=== PATIENT | female | born 1945 | race Caucasian/White ===

== ENCOUNTER 2022-04-20 10:47 | Outpatient (CLI) | payer MEDICARE, SELFPAY ==
[2022-04-20 18:46] LABS: Alanine Aminotransferase 22 U/L (6-35); Albumin Level 4.8 g/dL (3.5-5.1); Alkaline Phosphatase 65 U/L (38-126); Anion Gap 13 mmol/L (8-16); Aspartate Amino Transferase 39 U/L (14-36); Bilirubin,Total 0.7 mg/dL (0.2-1.3); Blood Urea Nitrogen 8 mg/dL (7-17); Calcium 9.9 mg/dL (8.4-10.2); Carbon Dioxide 26 mmol/L (22-30); Chloride 95 mmol/L (98-107); Cholesterol 177 mg/dL (0-200); Estimated Glomerular Filt Rate > 60; Glucose 102 mg/dL (65-110); HDL Direct 61 mg/dL; Sodium 134 mmol/L (137-145); Triglycerides 67 mg/dL (<150)
[2022-04-20 19:04] LABS: LDL Cholesterol Direct 80 mg/dL
== END 2022-04-20 10:48 | disposition home or self-care (01) ==
PROVIDERS: PCP Family Medicine; Visit Provider Family Medicine
DX: E78.5 Hyperlipidemia, unspecified (principal); Z13.29 Encounter for screening for other suspected endocrine disorder; I10 Essential (primary) hypertension
CPT/HCPCS: 36415; 80053; 80061; 84443

== ENCOUNTER 2022-10-22 14:12 | Outpatient (CLI) | payer MEDICARE, SELFPAY ==
--- NOTE | ~2022-10-22 | MM_ITS ---
EXAMINATION: MM screening chepe BI w robin HISTORY: Screening mammogram TECHNIQUE: Craniocaudal and mediolateral oblique 3-D tomosynthesis images were obtained and synthetic 2-D images were generated. CAD analysis was submitted and interpreted. COMPARISON: No prior mammogram is available for comparison at this institution. BREAST PARENCHYMAL COMPOSITION: There are scattered areas of fibroglandular density. FINDINGS: RIGHT BREAST: No suspicious mass, calcification, or architectural distortion are identified in the br east to suggest malignancy. There is questionable enlargement of a right axillary lymph node. LEFT BREAST: There are grouped calcifications in the middle third of the central breast. An asymmetry is present in the middle third of the breast just above the nipple axis 5 cm from the nipple on the mediolateral oblique view. IMPRESSION: 1. Grouped calcifications of the left breast and possible enlargement of the right axillary lymph nod e. 2. Magnification and spot compression views are recommended on the left and right axillary ultrasound is recommended. BI-RADS Category 0: Incomplete: Needs additional imaging evaluation. Reviewed, dictated and finalized at location A. IMPRESSION: 1. Grouped calcifications of the left breast and possible enlargement of the ri ght axillary lymph node. 2. Magnification and spot compression views are recommended on the left and rig ht axillary ultrasound is recommended. BI-RADS Category 0: Incomplete: Needs additional imaging evaluation.
--- NOTE | ~2022-10-22 | DEXA_ITS ---
Bone Density Report Name: MANAV ANGLIN Age: 77 Sex: Female Ethnicity: White Date of : 1945 Indication: postmenopausal; screening for osteoporosis; height loss; Referring Provider: JOSSELYN WALL Study: Bone densitometry was performed. Exam Date: October 22, 2022 Accession number: [id number] Bone Density: Region BMD T-score Z-score Classification AP Spine(L1-L4) 0.898 -1.4 1.1 Osteopenia Femoral Neck (Left) 0.675 -1.6 0.5 Osteopenia Total Hip (Left) 0.844 -0.8 1.0 Normal Femoral Neck (Right) 0.666 -1.6 0.5 Osteopenia Total Hip (Right) 0.812 -1.1 0.7 Osteopenia Total Hip Mean 0.828 -1.0 0.9 Normal World Health Organization criteria for BMD impression classify patients as: Normal (T-score at or above -1.0), Osteopenia (T-score between -1.0 and -2.5), or Osteoporosis (T-score at or below -2.5). 10-year Fracture Risk(1): Major Osteoporotic Fracture 12% Hip Fracture 2.4% Reported Risk Factors: [place] (), Neck BMD=0.666, BMI=30.1 (1) FRAX(R) Version 3.08. Fracture probability calculated for an untreated patient. Fracture probability may be lower if the patient has received treatment. Clinical Information Provided by Patient: Has used the following medications: Vitamin D, Calcium Patient maximum height was 65 Menopause Age: 52 Drinks caffeinated beverages Onset of menses at age 15 Number of children 0 Impression: The patient has low bone mass, based on the Left Femoral Neck T-score. The patient has an estimated ten-year risk of hip fracture of 2.4% and an estimated ten-year risk of major fracture of 12%, based on the WHO FRAX algorithm. Discussion: BONE DENSITY IS LOW AT ONE OR MORE SKELETAL SITES. This patient's lowest T-score is low at one or more skeletal sites. It meets the World Health Organization's (WHO) criteria for ?low bone mass? (T-score between -1.0 and -2.5). The patient's 10-year risk of fracture as calculated by FRAX is less than the threshold where pharmacological therapy is recommended by the National Osteoporosis Foundation (NOF). However, all treatment decisions require clinical judgment and consideration of individual patient factors, including patient preferences, comorbidities, previous drug use, risk factors not captured in the FRAX model (e.g., frailty, falls, vitamin D deficiency, increased bone turnover, interval significant decline in bone density) and possible under or overestimation of fracture risk by FRAX. The patient should follow a healthful lifestyle (good nutrition with adequate calcium and vitamin D, and appropriate weight-bearing exercise). Follow-Up: Consider repeating this study in 2 to 3 years to reassess this patient's status, or sooner if there is some new clinical indication. Reported by: [facility] on 10/22/2022 2:40:00 PM.
== END 2022-10-22 14:13 | disposition home or self-care (01) ==
LOC: ANHIMG 14:14
PROVIDERS: PCP Family Medicine; Visit Provider Family Medicine
DX: Z12.31 Encounter for screening mammogram for malignant neoplasm of breast (principal); Z78.0 Asymptomatic menopausal state; R92.8 Other abnormal and inconclusive findings on diagnostic imaging of breast; M85.88 Other specified disorders of bone density and structure, other site; M85.852 Other specified disorders of bone density and structure, left thigh; M85.851 Other specified disorders of bone density and structure, right thigh
CPT/HCPCS: 77063; 77067; 77080

== ENCOUNTER 2023-02-21 11:13 | Outpatient (CLI) | payer MEDICARE, SELFPAY ==
--- NOTE | ~2023-02-21 | US_ITS ---
US breast LT complete, US axilla RT DATE: 02/21/2023 12:51 Please refer to left diagnostic mammogram and right axillary and left complete breast ultrasound repo rt. IMPRESSION: BI-RADS Category 2: Benign findings Recommendation: Routine annual mammographic screening Reviewed, dictated and finalized at Location A. Reviewed, dictated and finalized at location A. IMPRESSION: BI-RADS Category 2: Benign findings Recommendation: Routine annual mammographic screening
--- NOTE | ~2023-02-21 | MM_ITS ---
EXAMINATION: MM diagnostic mammo unilat LT HISTORY: Left breast calcifications TECHNIQUE: Additional ML 3-D tomosynthesis images of the left breast were performed and synthetic 2-D images were generated. Magnification views of the left breast CAD analysis was submitted and interpr eted. High resolution complete left breast ultrasound examination including all 4 quadrants and subar eolar area and right axillary ultrasound examination was performed. COMPARISON: 10/22/2022 bilateral screening mammogram FINDINGS: MAMMOGRAPHIC FINDINGS: There are scattered solitary and grouped microcalcifications of the left breast. The mammographic fea tures appear benign. No suspicious linear or branching microcalcifications are detected. ULTRASOUND: Right axilla: Several normal-appearing right axillary lymph nodes are noted, measuring up to approxim ately 1 cm maximal dimension, with relatively uniform thickness and echogenicity of the cortex, promi nent fatty ramonita. No suspicious mass or shadowing is detected in the right axilla. Left breast ultrasound: No suspicious mass or shadowing is detected. IMPRESSION: 1. No mammographic or sonographic evidence of malignancy 2. Routine annual mammographic screening is recommended BI-RADS Category 1: Negative Reviewed, dictated and finalized at location A.
== END 2023-02-21 11:14 | disposition home or self-care (01) ==
PROVIDERS: PCP Family Medicine; Visit Provider Family Medicine
DX: R92.0 Mammographic microcalcification found on diagnostic imaging of breast (principal); R92.8 Other abnormal and inconclusive findings on diagnostic imaging of breast
CPT/HCPCS: 76641; 76882; 77065

== ENCOUNTER 2023-03-15 09:36 | Emergency (ER) | payer MEDICARE, SELFPAY ==
--- NOTE | ~2023-03-15 | CT_ITS ---
EXAMINATION: CT brain wo con DATE: 03/15/2023 10:42 INDICATION: Fall with head injury and headache TECHNIQUE: Computed tomography (CT) of the head was performed without intravenous contrast. Sagittal and coronal reconstructions were performed. The mA was adjusted according to patient size. Iterative reconstruction technique was employed. The dose-length product was 605.33 mGy-cm. COMPARISON: None FINDINGS: 2.0 x 1.2 x 0.8 cm cystic scalp lesion identified to the left of midline at the forehead. No calvaria l fracture. No acute intracranial hemorrhage, acute infarction or abnormal extra axial fluid collecti on. There is mild scattered white matter hypoattenuation consistent with chronic small vessel ischemi c disease. Symmetric prominence of the sulci consistent with mild age-appropriate diffuse cerebral vo lume loss. Ventricles are normal and symmetric. No mass/mass effect. Intracranial calcified cerebral atherosclerosis is noted. The orbits, paranasal sinuses and mastoid air cells are normal. IMPRESSION: 1. No fracture or acute intracranial process. 2. Age-related changes including mild diffuse on loss and mild scattered white matter hypoattenuation consistent with chronic small vessel ischemic disease. Reviewed, dictated and finalized at location A.
--- NOTE | ~2023-03-15 | CT_ITS ---
EXAMINATION: 1. CT facial & cervical spine wo DATE: 03/15/2023 10:42 INDICATION: Fall with head injury, bruising to the face and pain. TECHNIQUE: 1. Computed tomography (CT) of the maxillofacial region and of the cervical spine were performed with out intravenous contrast. Sagittal and coronal reconstructions of both regions were obtained. Automat ed exposure control and iterative reconstruction technique were employed. The dose-length product was 380.10 mGy-cm. COMPARISON: None. FINDINGS: Maxillofacial CT: No maxillofacial fractures. Specifically the nasal bones, zygomatic arches, miranda of the orbits and p aranasal sinuses and mandible are all intact. Orbits are normal. Likely benign 2.0 x 1.2 x 0.8 cm cys tic lesion in the left paramedian scalp at the forehead most likely a trichilemmal cyst. The paranasa l sinuses and bilateral mastoid air cells and middle ear cavities are all clear. There is some streak artifact associated with multiple dental restorations. Cervical spine CT: Alignment is normal. Vertebral body heights are normal. No fracture. Moderate disc height loss with d egenerative endplate changes and severe bilateral uncovertebral osteoarthritis at C5-C6. Additional m oderate disc height loss at C4-C5, and T2-T3. Mild disc height loss at remaining cervical levels spar ing C3-C4. Posterior disc osteophyte complex at C5-C6 resulting in mild central canal stenosis. Noted stenosis throughout the remainder the visualized cervical and upper thoracic central canal. Moderate to severe multilevel bilateral cervical and upper thoracic facet osteoarthritis. There is suggestion of small osseous fusion across the T2-T3 and possible the right C4-C5 facet joints. The facet and un covertebral osteoarthritis contributing to moderate neural foraminal stenosis on the right at C5-C6 a nd mild neural from stenosis at many of the remaining bilateral cervical and thoracic neural foramina . Cervical soft tissues are unremarkable. Minimal atelectasis in the dependent aspect of the visualiz ed upper lobes. 4 mm pleural-based nodule along the cephalad aspect of the left major fissure. If the patient is low risk for lung cancer, no follow-up is needed. If the patient is high risk (i.e., hist ory of smoking or asbestos or significant radiation exposure), optional follow-up chest CT could be c onsidered at 12 months. IMPRESSION: 1. No acute maxillofacial or cervical fractures. 2. Moderate cervical spondylosis. Reviewed, dictated and finalized at location A.
[2023-03-15 09:39] VITALS: BP 160/110; PULSE 60; RESP 18; TEMP 36.8; O2SAT 100
[2023-03-15 09:54] VITALS: BP 142/99; PULSE 74; RESP 20; O2SAT 99
[2023-03-15 10:16] VITALS: BP 152/85; PULSE 76; RESP 16; O2SAT 100
[2023-03-15 10:31] VITALS: BP 143/99; PULSE 77; RESP 25
--- NOTE | 2023-03-15 10:49 | ED.HEATRA ---
HPI - Head Injury General Chief complaint: Head Injury <ARTEMIO Ortiz Last Filed: 03/15/23 11:41> Stated complaint: head injury 2 weeks ago <ARTEMIO Ortiz Last Filed: 03/15/23 11:41> Time Seen by Provider: 03/15/23 09:48 <ARTEMIO Ortiz Last Filed: 03/15/23 11:41> Source: patient <ARTEMIO Ortiz Last Filed: 03/15/23 11:41> Mode of arrival: ambulatory <ARTEMIO Ortiz Last Filed: 03/15/23 11:41> Limitations: no limitations <ARTEMIO Ortiz Last Filed: 03/15/23 11:41> History of Present Illness HPI Narrative: Patient is a 77-year-old female who presents to the ED with report of head injury. Patient reports she tripped over her shoe on 02/25 and fell hitting an ottoman. She sustained a head injury at that time. She did not lose consciousness. She was not evaluated at that time. She is not on any blood thinners. She sustained a large hematoma to her forehead which she states has not gone down in size much. She has had intermittent headaches since then though not severe. Last night after watching TV, she reported feeling somewhat dizzy/woozy, and feeling as though her brain was not as clear. She decided to be evaluated today. She denies any current dizziness or lightheadedness. Denies current headache. Denies vision changes, denies neck or back pain, denies nausea, vomiting, weakness or numbness. <ARTEMIO Ortiz Last Filed: 03/15/23 11:41> Related Data Home medications: Home Medications Medication Instructions Recorded Confirmed [id number] 8 mg-folic 400 1 tablet PO DAILY 01/08/20 10/19/22 mcg-K 50 mcg-lutein 300 mcg tablet (Centrum Silver Women) <ARTEMIO Ortiz Last Filed: 03/15/23 11:41> Allergies/Adverse reactions: Allergies Allergy/AdvReac Type Severity Reaction Status Date / Time No Known Allergies Allergy Verified 03/15/23 09:56 <Frannie Fair PA-C - Last Filed: 03/15/23 11:41> Review of Systems Review of Systems: CONSTITUTIONAL: Denies fever, chills, or sweats. EYES: Denies visual changes. CARDIOVASCULAR: Denies chest pain. RESPIRATORY: Denies dyspnea. GASTROINTESTINAL: Denies abdominal pain, nausea, vomiting. SKIN: See HPI. MUSCULOSKELETAL: Denies back pain, neck pain. NEUROLOGIC: See HPI. <Frannie Fair PA-C - Last Filed: 03/15/23 11:41> All systems reviewed & are unremarkable except as noted in HPI and below <Frannie Fair PA-C - Last Filed: 03/15/23 11:41> PMFSH Family History Family History: Family History Mother , Age 73 Thyroid Cancer Thyroid cancer Father No problems noted. <Frannie Fair PA-C - Last Filed: 03/15/23 11:41> Social History Social History: Social History Smoking status: Never smoker Alcohol intake: current Drinks per week: 4 Alcohol use details: wine, on occasion. Substance use: never Lack of Transportation: No Lack of Food: Never True Current Housing: I Have Housing Concerned About Future Housing: No Difficulty Paying Gas/Electric Bills: No Currently Unemployed: No Education: Master's Degree or Higher Difficulty w/ Childcare or Family Care: No Occupation/Education: retired Gender identity (if verbalized by the patient): Female <Frannie Fair PA-C - Last Filed: 03/15/23 11:41> Exam Narrative: GENERAL: Elderly, well-nourished, non-toxic, in no acute distress. HEAD: Normocephalic. Contusion/hematoma with surrounding ecchymosis to mid forehead, no significant tenderness. Pinpoint abrasion, no active bleeding. EENT: Scattered areas of ecchymosis to face and below eyes, in various stages of healing. PERRLA/EOMI, conjunctiva clear. No septal hematoma. No evidence
[2023-03-15 11:30] VITALS: BP 142/96; PULSE 70; RESP 16; O2SAT 98
== END 2023-03-15 11:30 | disposition home or self-care (01) ==
PROVIDERS: Emergency Provider Physician Assistant; PCP Family Medicine
DX: S00.83XA Contusion of other part of head, initial encounter (principal); M47.816 Spondylosis without myelopathy or radiculopathy, lumbar region; W18.09XA Striking against other object with subsequent fall, initial encounter
CPT/HCPCS: 70450; 70486; 72125; 99284

== ENCOUNTER 2023-09-20 11:16 | Outpatient (CLI) | payer MEDICARE, SELFPAY ==
[2023-09-20 20:03] LABS: Alanine Aminotransferase 18 U/L (6-35); Albumin Level 4.9 g/dL (3.5-5.1); Alkaline Phosphatase 70 U/L (38-126); Anion Gap 8 mmol/L (4-12); Aspartate Amino Transferase 47 U/L (14-36); Bilirubin,Total 0.8 mg/dL (0.2-1.3); Blood Urea Nitrogen 12 mg/dL (7-17); Calcium 10.7 mg/dL (8.4-10.2); Carbon Dioxide 30 mmol/L (22-30); Chloride 102 mmol/L (98-107); Cholesterol 199 mg/dL (0-200); Estimated Glomerular Filt Rate > 60; Glucose 107 mg/dL (65-110); HDL Direct 70 mg/dL; Sodium 140 mmol/L (137-145); Triglycerides 78 mg/dL (<150)
[2023-09-20 22:37] LABS: LDL Cholesterol Direct 105 mg/dL
== END 2023-09-20 11:17 | disposition home or self-care (01) ==
LOC: ANHGOSHLAB 11:17
PROVIDERS: PCP Family Medicine; Visit Provider Family Medicine
DX: E78.5 Hyperlipidemia, unspecified (principal); Z13.228 Encounter for screening for other metabolic disorders
CPT/HCPCS: 36415; 80053; 80061

== ENCOUNTER 2024-09-21 11:06 | Outpatient (CLI) | payer MEDICARE, SELFPAY ==
[2024-09-21 18:25] LABS: Basophils Percent Auto 0.5 % (0.2-1.2); Eosinophils Percent Auto 0.6 % (0-4.4); Hematocrit 41.5 % (37.0-47.0); Hemoglobin 13.5 g/dL (12.0-15.0); Immature Granulocyte Absolute 0.01 K/mm3 (0.00-0.031); Immature Granulocyte Percent A 0.2 % (0-0.5); Lymphocytes Absolute Auto 2.21 K/mm3 (0.9-3.2); Lymphocytes Percent Auto 33.8 % (18.3-44.2); Mean Corpuscular HGB Conc 32.5 g/dl (32-36); Mean Corpuscular Hemoglobin 30.1 pg (26-34); Mean Corpuscular Volume 92.6 fl (80-100); Mean Platelet Volume 9.6 fl (7.4-10.4); Monocytes Absolute Auto 0.5 K/mm3 (0.1-0.6); Neutrophils Absolute Auto 3.8 K/mm3 (1.3-6.7); Neutrophils Percent Auto 57.9 % (45.5-73.1); Platelet Count Result 265 k/mm3 (150-375); Red Blood Count 4.48 M/mm3 (4.2-5.4); Red Cell Distribution Width 12.7 % (11.5-14.5); White Blood Count 6.5 K/mm3 (4.5-10.0)
[2024-09-21 18:49] LABS: Alanine Aminotransferase 22 U/L (6-35); Albumin Level 4.8 g/dL (3.5-5.1); Alkaline Phosphatase 70 U/L (38-126); Anion Gap 9 mmol/L (4-12); Aspartate Amino Transferase 45 U/L (14-36); Bilirubin,Total 0.7 mg/dL (0.2-1.3); Blood Urea Nitrogen 10 mg/dL (7-17); Calcium 10.2 mg/dL (8.4-10.2); Carbon Dioxide 31 mmol/L (22-30); Chloride 96 mmol/L (98-107); Cholesterol 185 mg/dL (0-200); Estimated Glomerular Filt Rate > 60; Glucose 97 mg/dL (65-110); HDL Direct 63 mg/dL; Potassium 3.9 mmol/L (3.4-5.0); Sodium 136 mmol/L (137-145); Triglycerides 93 mg/dL (<150)
[2024-09-21 19:00] LABS: Free T3 3.38 pg/mL (2.45-5.93); Free T4 Free Thyroxine 0.98 ng/dL (0.78-2.19); LDL Cholesterol Direct 87 mg/dL
== END 2024-09-21 11:07 | disposition home or self-care (01) ==
LOC: ANHGOSHLAB 11:07
PROVIDERS: PCP Internal Medicine; Visit Provider Clinical Nurse Specialist
DX: E78.5 Hyperlipidemia, unspecified (principal); I10 Essential (primary) hypertension; Z80.8 Family history of malignant neoplasm of other organs or systems; Z13.220 Encounter for screening for lipoid disorders
CPT/HCPCS: 36415; 80053; 80061; 84439; 84443; 84481; 85025

== ENCOUNTER 2025-03-04 10:44 | Outpatient (CLI) | payer MEDICARE, SELFPAY ==
[2025-03-04 13:01] LABS: Alanine Aminotransferase 20 U/L (6-35); Albumin Level 4.3 g/dL (3.5-5.1); Alkaline Phosphatase 67 U/L (38-126); Anion Gap 7 mmol/L (4-12); Aspartate Amino Transferase 48 U/L (14-36); Bilirubin,Total 0.5 mg/dL (0.2-1.3); Blood Urea Nitrogen 12 mg/dL (7-17); Calcium 9.6 mg/dL (8.4-10.2); Carbon Dioxide 31 mmol/L (22-30); Chloride 96 mmol/L (98-107); Cholesterol 176 mg/dL (0-200); Estimated Glomerular Filt Rate > 60; Glucose 98 mg/dL (65-110); HDL Direct 50 mg/dL; Magnesium 1.7 mg/dL (1.6-2.3); Sodium 134 mmol/L (137-145); Total Protein 7.5 g/dL (6.3-8.2); Triglycerides 60 mg/dL (<150)
[2025-03-04 13:11] LABS: Add Urine Microscopic? YES; Appearance Urine Cloudy (Clear); Glucose Urine UA Negative (Negative); Hematocrit 38.1 % (37.0-47.0); Hemoglobin 12.3 g/dL (12.0-15.0); Immature Granulocyte Percent A 0.2 % (0-0.5); Leukocyte Esterase Ur Negative LEU/UL (Negative); Lymphocytes Absolute Auto 1.91 K/mm3 (0.9-3.2); Mean Corpuscular HGB Conc 32.3 g/dl (32-36); Mean Corpuscular Hemoglobin 29.6 pg (26-34); Mean Corpuscular Volume 91.8 fl (80-100); Nitrate Urine Negative (Negative); Non Pathogenic Casts 0-2; Nucleated Red Blood Cells Absolute Auto 0.000 K/mm3 (0.0-0.012); Nucleated Red Blood Cells Perc 0.0 % (0.0-0.2); Platelet Count Result 275 k/mm3 (150-375); Potassium 4.1 mmol/L (3.4-5.0); Red Blood Count 4.15 M/mm3 (4.2-5.4); Specific Grav Ur 1.012 (1.001-1.035); White Blood Count 6.1 K/mm3 (4.5-10.0)
[2025-03-04 13:36] LABS: Free T4 Free Thyroxine 0.93 ng/dL (0.78-2.19)
[2025-03-04 13:37] LABS: Thyroid Stimulating Hormone 2.910 uIU/mL (0.465-4.680)
[2025-03-04 14:44] LABS: Hemoglobin A1C 5.7 % (<5.7)
== END 2025-03-04 10:45 | disposition home or self-care (01) ==
PROVIDERS: PCP Internal Medicine; Visit Provider Internal Medicine
DX: I49.9 Cardiac arrhythmia, unspecified (principal); R94.6 Abnormal results of thyroid function studies; E78.5 Hyperlipidemia, unspecified; I10 Essential (primary) hypertension; E55.9 Vitamin D deficiency, unspecified; R25.2 Cramp and spasm; Z13.1 Encounter for screening for diabetes mellitus; Z79.899 Other long term (current) drug therapy
CPT/HCPCS: 36415; 80053; 80061; 81001; 82306; 83036; 83735; 84439; 84443; 85025

== ENCOUNTER 2025-03-04 11:04 | Outpatient (CLI) | payer MEDICARE, SELFPAY ==
--- NOTE | ~2025-03-04 | XR_ITS ---
EXAMINATION: XR pelvis 1-2V, 03/04/2025 11:25 CDT HISTORY: Low back pain, fell June 2023 COMPARISON: No comparisons available. Findings: No acute fracture or malalignment. No significant degenerative changes. Soft tissues unremarkable. Impression: No acute fracture or malalignment. Reviewed, dictated and finalized at location A. Impression: No acute fracture or malalignment.
--- NOTE | ~2025-03-04 | XR_ITS ---
EXAMINATION: XR sacroiliac joints min 3V, 03/04/2025 11:25 CDT HISTORY: Sacrococcygeal disorders, not elsewhere classified COMPARISON: No comparisons available. Findings: No acute fracture or malalignment. Sclerosis of the sacroiliac joints, no erosions or bridging osteophyte formation Soft tissues unremarkable. Impression: No acute fracture or malalignment. Reviewed, dictated and finalized at location A. Impression: No acute fracture or malalignment.
--- NOTE | ~2025-03-04 | XR_ITS ---
XR lumbar spine min 4V Indication: fell june 2023 Comparison: None Findings: Remote superior endplate fracture of L2, no acute fracture or subluxation. Grade 1 retrolisthesis L2 on L3, grade 1 anterolisthesis L4 on L5. Moderate loss of disc at L1-2 and L5-S1. Soft tissues unremarkable Impression: No acute abnormality. Reviewed, dictated and finalized at location A. Impression: No acute abnormality.
== END 2025-03-04 11:05 | disposition home or self-care (01) ==
PROVIDERS: PCP Internal Medicine; Visit Provider Internal Medicine
DX: S39.92XA Unspecified injury of lower back, initial encounter (principal); W19.XXXA Unspecified fall, initial encounter; M53.3 Sacrococcygeal disorders, not elsewhere classified; G89.29 Other chronic pain; M54.9 Dorsalgia, unspecified
CPT/HCPCS: 72110; 72170; 72202

== ENCOUNTER 2025-03-28 09:54 | Outpatient (CLI) | payer MEDICARE, SELFPAY ==
--- NOTE | ~2025-03-28 | MM_ITS ---
EXAMINATION: MM screening chepe BI w robin HISTORY: Screening TECHNIQUE: Craniocaudal and mediolateral oblique 3-D tomosynthesis images were obtained and synthetic 2-D images were generated. CAD analysis was submitted and interpreted. COMPARISON: 10/22/2022 BREAST PARENCHYMAL COMPOSITION: The breasts are heterogeneously dense, which may obscure small masses. FINDINGS: There is no evidence of suspicious mass or architectural distortion to suggest malignancy. Indeterminate calcifications in the central left breast with an associated focal asymmetry. Asymmetry in the central right breast, middle depth. IMPRESSION: 1. Indeterminate calcifications in the central left breast with an associated focal asymmetry The study is incomplete. A diagnostic mammogram and a diagnostic ultrasound are recommended. 2. Asymmetry in the central right breast, middle depth. The study is incomplete. A diagnostic mammogram and a diagnostic ultrasound are recommended. BI-RADS 0: Incomplete-Need additional imaging evaluation. Reviewed, dictated and finalized at location Q. IMPRESSION: 1. Indeterminate calcifications in the central left breast with an associated f ocal asymmetry The study is incomplete. A diagnostic mammogram and a diagnostic ultrasound are recommended. 2. Asymmetry in the central right breast, middle depth. The study is incomplete . A diagnostic mammogram and a diagnostic ultrasound are recommended. BI-RADS 0: Incomplete-Need additional imaging evaluation.
== END 2025-03-28 09:55 | disposition home or self-care (01) ==
PROVIDERS: PCP Internal Medicine; Visit Provider Internal Medicine
DX: Z12.31 Encounter for screening mammogram for malignant neoplasm of breast (principal); R92.8 Other abnormal and inconclusive findings on diagnostic imaging of breast
CPT/HCPCS: 77063; 77067

== ENCOUNTER 2025-05-08 12:43 | Outpatient (CLI) | payer MEDICARE, SELFPAY ==
--- NOTE | ~2025-05-08 | MMUS_ITS ---
EXAMINATION: US breast RT limited, MM diagnostic chepe BI w robin HISTORY: Additional imaging TECHNIQUE: Craniocaudal and mediolateral oblique 3-D tomosynthesis images were obtained and synthetic 2-D images were generated. CAD analysis was submitted and interpreted. Grayscale sonography over the area(s) of interest with color Doppler if there is a finding. COMPARISON: March 28 BREAST PARENCHYMAL COMPOSITION: Dense: The breast tissue is heterogeneously dense, which lowers the sensitivity of mammography. MAMMOGRAM FINDINGS: The focal asymmetry in question is less well seen, but it is still believed to be present. The calcifications in question are regional in distribution and are located at approximately 12:00. These span a distance of approximately 5.5 cm. The anteriormost calcification is approximately 2.0 cm from the nipple. The posterior-most calcifications are approximately 2.6 cm from the chest wall. No unexplained architectural distortion is seen. There are no skin or nipple abnormalities identified. There is no adenopathy seen on the images submitted. ULTRASOUND FINDINGS: Sonography through the anterior 11:00 position on the right demonstrates a circumscribed, homogeneous, hypoechoic mass with parallel orientation and a maximum dimension of 5 mm, as measured by the radiologist. IMPRESSION: 1. The structure on the right is considered probably benign. Six-month follow-up right mammogram and right breast ultrasound are recommended. 2. Regional suspicious calcifications on the left for which stereotactic/tomographic-guided core biopsy is recommended. BI-RADS: 4 - Suspicious for malignancy. Tissue diagnosis is recommended. Reviewed, dictated and finalized at location B. 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 The structure on the right is considered probably benign. Six-month follow-u p right mammogram and right breast ultrasound are recommended. 2. Regional suspicious calcifications on the left for which stereotactic/tomogr aphic-guided core biopsy is recommended. BI-RADS: 4 - Suspicious for malignancy. Tissue diagnosis is recommended.
== END 2025-05-08 12:44 | disposition home or self-care (01) ==
LOC: ANHFOHIMG 12:44
PROVIDERS: PCP Internal Medicine; Visit Provider Internal Medicine
DX: R92.8 Other abnormal and inconclusive findings on diagnostic imaging of breast (principal)
CPT/HCPCS: 76642; 77062; 77066; G0279